=== PATIENT | male | born 1970 | race Hispanic/Latino ===

== ENCOUNTER 2021-05-24 10:43 | Emergency (ER) | payer BC ==
[~2021-05-24] VITALS: Ht 177.8 cm; Wt 80.8 kg
== END 2021-05-24 12:34 | disposition home or self-care (01) ==
LOC: FSED 10:52
DX: M79.662 Pain in left lower leg (principal); W22.03XA Walked into furniture, initial encounter; Y92.008 Other place in unspecified non-institutional (private) residence as the place of occurrence of the external cause; F17.210 Nicotine dependence, cigarettes, uncomplicated
CPT/HCPCS: 99283